=== PATIENT | female | born 1975 | race Caucasian/White ===

== ENCOUNTER 2017-02-23 10:39 | Emergency (ER) | payer BC ==
[2017-02-23 09:33] LABS: BASOPHILS 0.3 %; BASOPHILS ABSOLUTE 0.03 10/3/uL (0.0-0.16); EOSINOPHILS 0.4 %; EOSINOPHILS ABSOLUTE 0.05 10/3/uL (0.0-0.53); HEMATOCRIT 43.3 % (36.0-48.0); HEMOGLOBIN 14.2 g/dL (12.0-16.0); IMMATURE GRANULOCYTES 0.6 %; IMMATURE GRANULOCYTES ABSOLUTE 0.07 10/3/uL (0.0-0.11); LYMPHOCYTES 27.3 %; LYMPHOCYTES ABSOLUTE 3.18 10/3/uL (0.67-4.30); MEAN CORPUS HGB CONC 32.8 g/dL (32.0-36.0); MEAN CORPUSCULAR HEMOGLOB 27.7 pg (26.0-34.0); MEAN PLATELET VOLUME 10.1 fL (9.2-13.0); MONOCYTES 5.7 %; MONOCYTES ABSOLUTE 0.66 10/3/uL (0.21-1.20); NEUTROPHILS 65.7 %; NEUTROPHILS ABSOLUTE 7.66 10/3/uL (2.02-8.40); PLATELET COUNT 280 10/3/uL (150-400); RBC DISTRIBUTION WIDTH 14.9 % (12.0-16.0); RED CELL COUNT 5.12 10/6/uL (4.0-5.6)
[2017-02-23 09:38] LABS: ER CBC TAT 0 Hrs 09 Mins; MANUAL DIFF NO %; MEAN CORPUSCULAR VOLUME 84.6 fL (80-100); WHITE BLOOD CELLS 11.7 10/3/uL (4.5-10.5)
[2017-02-23 09:39] LABS: ACETONE NEG
[2017-02-23 09:40] LABS: ASCORBIC ACID (UR NOT ORDER) NEG (NEG); BILIRUBIN, URINE NEGATIVE (NEG); ER URINALYSIS TAT 0 Hrs 11 Mins; KETONE, URINE NEGATIVE (NEG); LEUKOCYTE ESTERASE(NOT OR NEG (NEG); NITRITE (URINE) NEG (NEG); WBC (NOT ORDERED) (RFLEX) < 1 (0-5)
[2017-02-23 10:11] LABS: ALBUMIN 3.7 G/DL (3.5-5.0); ALKALINE PHOSPHATASE 101 U/L (45-117); BUN (BLOOD UREA NITROGEN) 15 MG/DL (6-23); CALCIUM, SERUM 9.4 MG/DL (8.5-10.4); CHLORIDE, SERUM 100 MMOL/L (96-112); CREATININE 0.89 MG/DL (0.55-1.02); GFR AFRICAN AMERICAN 91 ML/MIN (>=60); GFR NON AFRICAN AMERICAN 79 ML/MIN (>=60); SGPT(ALT) 109 U/L (5-65); TOTAL BILIRUBIN 0.3 MG/DL (0-1.2); TOTAL PROTEIN 7.7 G/DL (6.0-8.5)
[2017-02-23 10:12] LABS: SODIUM, SERUM 135 MMOL/L (135-148)
[2017-02-23 10:13] LABS: A/G RATIO 0.9 (0.7-1.9); CO2 (CARBON DIOXIDE) 23 MMOL/L (24-34); GLUCOSE, SERUM 475 MG/DL (60-99); POTASSIUM, SERUM 4.1 MMOL/L (3.5-5.3); SGOT(AST) 68 U/L (5-40)
[~2017-02-23 10:39] MED LIST: ADOXA100 MG PO; ALLEGRA180 PO; AMARYL2 PO; AMITIZA8 MCG PO; BACDS PO; BEN25 PO; CELEBREX2 PO; CENTRUM TAB1 TAB PO; CYMBALTA60 PO; DIPHENCR TOP; FLEX PO; GLUCOPHAGE1000 MG PO; GLUMETZA500 MG PO; HYDROCORT12 TOP; LIDODERM TOP; LYRICA150 MG PO; MAXAIR AUTOH200 MCG INH; OXYCONTIN PO; PCET PO; PERCOCET1 TA2 PO; PR25 PO; PRILO PO; PRILOSEC OTC20 MG PO; PRILOSEC40 MG PO; SAVELLA50 MG PO; SINGULAIR1 PO; SPIRO50 PO; SYSTANE ULTR OPH; T PO; UROGESIC-BLU PO; VITAMIN D2000 UNIT PO; VITAMIN D31000 UNIT PO; WELLSR150 PO; ZOFRAN4 PO
== END 2017-02-23 11:55 | disposition home or self-care (01) ==
LOC: ER 10:39
PROVIDERS: Emergency Medicine
DX: E10.65 Type 1 diabetes mellitus with hyperglycemia (principal); F31.9 Bipolar disorder, unspecified; F41.9 Anxiety disorder, unspecified; F17.200 Nicotine dependence, unspecified, uncomplicated; Z87.01 Personal history of pneumonia (recurrent); Z90.710 Acquired absence of both cervix and uterus; Z88.1 Allergy status to other antibiotic agents; Z88.5 Allergy status to narcotic agent; Z88.8 Allergy status to other drugs, medicaments and biological substances; Z91.018 Allergy to other foods; Z79.84 Long term (current) use of oral hypoglycemic drugs; Z79.899 Other long term (current) drug therapy
CPT/HCPCS: 80053; 81001; 82009; 82962; 85025; 96374; 99285; A9270-GY